=== PATIENT | male | born 1980 | race Caucasian/White ===

== ENCOUNTER 2016-10-06 04:44 | Emergency (ER) | payer BC ==
[~2016-10-06] VITALS: Ht 172.7 cm; Wt 102.3 kg
[~2016-10-06 04:44] MED LIST: ALUM5LIQ PO; NEXI20CA PO
[2016-10-06 04:54] VITALS: BP 147/97; PULSE 67; RESP 18; TEMP 98.6; O2SAT 100
[2016-10-06 05:07] VITALS: BP 133/77; PULSE 71; RESP 18; TEMP 98.6; O2SAT 99
[2016-10-06] MEDS ORDERED: LISI10TA3 PO (05:07)
[2016-10-06 05:25] VITALS: RESP 18; O2SAT 98
[2016-10-06] MEDS ORDERED: methylPREDNISolone SOD SUCC 125 MG/2 ML VIAL IVP ONE (05:30)
[2016-10-06] MEDS ORDERED: diphenhydrAMINE HCL 50 MG/ML VIAL IVP ONE (05:30)
--- NOTE | 2016-10-06 05:33 | PD ---
HPI Chief Complaint: ENT Complaint Time Seen by Provider: 05:18 Travel History International Travel<30 days: No Contact w/Intl Traveler<30days: No Traveled to known affect area: No History of Present Illness HPI 36-year-old male presents to the emergency department by private transportation for evaluation of swelling of his uvula. Patient reports he has reflux esophagitis. Patient states last evening before going to bed around 1:30 AM he noticed some increased reflux and burning in the back of his throat from gastric acid. Patient took Rolaids and drank some hot water with honey. Patient states she went to bed and awakened around 4 AM and noticed some discomfort in his throat and looked in the mirror and saw that his uvula was swollen. Patient states he has taken related to the past without adverse reaction and has consumed the same honey in the past without adverse reaction. Patient took no medications prior to coming to the emergency room. Patient reportedly has allergy to Prilosec and Zantac. Patient does not have any lip swelling tongue swelling and denies any difficulty with swallowing or breathing. Patient had no wheezing chest pain near-syncope or syncope. Patient denies any trauma to the uvula. Patient's had no recent febrile illness or respiratory illness. Patient rates his discomfort 0/10 in intensity. PFSH Past Medical History Narrative Medical Anxiety depression negative stress test atypical chest pain hiatal hernia GERD hypertension tonsillectomy alcohol use nursing notes reviewed Anxiety: Yes Depression: Yes Cardiac Catheterization: No Cardiovascular Problems: Yes (prev stress tests) High Cholesterol: No Congestive Heart Failure: No Diabetes: No Diminished Hearing: No Hiatal Hernia: Yes Heparin Induced Thrombocytopen: Yes Hypertension: Yes Tetanus Vaccination: Unknown Influenza Vaccination: Yes Past Surgical History Coronary Artery Bypass Graft: No Tonsillectomy: Yes Family History Family Myocardial Infarction: Yes (mom) Social History Alcohol Use: Yes (every other weekend) Tobacco Use: No Substance Use: No Allergies-Medications (Allergen,Severity, Reaction): Coded Allergies: Penicillin (Verified Allergy, Severe, 10/06/16) Prilosec (Verified Allergy, Intermediate, 10/06/16) Zantac (Verified Allergy, Intermediate, 10/06/16) Reported Meds & Prescriptions Reported Meds & Active Scripts Active Prednisone 50 Mg Tab 50 Mg PO DAILY Reported Lisinopril 10 Mg Tab 10 Mg PO DAILY Review of Systems Except as stated in HPI: all other systems reviewed are Neg General / Constitutional: No: Fever, Chills HENT: No: Congestion Cardiovascular: No: Chest Pain or Discomfort Respiratory: No: Cough, Shortness of Breath, Wheezing, Stridor Gastrointestinal: No: Nausea, Vomiting Genitourinary: No: Flank Pain Musculoskeletal: No: Pain Skin: No Rash, No Hives Neurologic: No: Weakness Hematologic/Lymphatic: No: Lymph Node Enlargement Physical Exam Narrative GENERAL: Well-developed well-nourished male in no acute distress no respiratory distress no stridor no hoarseness. SKIN: Warm and dry. HEAD: Normocephalic. EYES: No scleral icterus. No injection or drainage. ENT: membranes moist; airway is patent; focal uvula edema NECK: Supple, trachea midline. No JVD or lymphadenopathy. CARDIOVASCULAR: Regular rate and rhythm without murmurs, gallops, or rubs. RESPIRATORY: Breath sounds equal bilaterally. No accessory muscle use. GASTROINTESTINAL: Abdomen soft, non-tender, nondistended. MUSCULOSKELETAL: No cyanosis, or edema. BACK: Nontender without obvious deformity. No CVA tenderness. Data Data Last Documented VS Vital Signs Date Time Temp Pulse Resp B/P Pulse Ox O2 Delivery O2 Flow Rate FiO2 10/06/16 05:25 18 98 Room Air 10/06/16 05:10 71 10/06/16 05:07 98.6 133/77 Orders Ecg Monitoring (10/06/16 05:18) Iv Access Insert/Monitor (10/06/16 05:18) Oximetry (10/06/16 05:18) Diphenhydramine Inj (Benadryl Inj) (10/06/16 05:30) Methylprednisolone So Succ Inj (Solumedr (10/06/16 05:30) MDM Medical Decision Making Medical Screen Exam Complete: Yes Emergency Medical Condition: Yes Medical Record Reviewed: Yes Differential Diagnosis Allergic reaction, angioedema, anaphylaxis, hereditary angioedema, chemical burn /reflux esophagitis Narrative Course Patient administered Solu-Medrol 125 mg IV and Benadryl 25 mg IV At 6:35 AM patient is clinically improved focal angioedema involving the uvula is diminishing. Patient continues to have no respiratory distress or difficulty with swallowing also no stridor or hoarseness. Patient tolerated oral hydration well in the emergency department. Patient appears stable at this time for outpatient management Diagnosis Primary Impression: Angioedema Qualified Code: T78.3XXA - Angioedema, initial encounter Referrals: Primary Care Physician 1 day Patient Instructions: General Instructions Departure Forms: Tests/Procedures, Work Release Special Instructions: No work times one day Additional Instructions: No work times one day Avoid hot foods and beverages 24 hours Follow soft diet 24 hours Complete course of oral steroid as prescribed Use Benadryl 25-50 mg as often as every 4-6 hours as needed for soft tissue swelling/allergic reaction Return to the emergency for for any concerns or change in condition Increase fluid hydration Follow-up with primary care provider Med/Other Pt SpecificInfo: Prescription(s) given Scripts Prednisone 50 Mg Tab50 Mg PO DAILY #4 TAB Ref 0 Prov:Evonne Bui MD 10/06/16 Disposition: 01 DISCHARGE HOME Condition: Stable Evonne Bui MD Oct 06, 2016 05:33
[2016-10-06] MEDS ORDERED: PRED50 PO (06:31)
== END 2016-10-06 07:04 | disposition home or self-care (01) ==
LOC: PHED 04:44
DX: T78.3XXA Angioneurotic edema, initial encounter (principal); K21.0 Gastro-esophageal reflux disease with esophagitis; I10 Essential (primary) hypertension; X58.XXXA Exposure to other specified factors, initial encounter
CPT/HCPCS: 96374; 96375; 99283; J1200; J2930

== ENCOUNTER 2017-01-21 16:17 | Emergency (ER) | payer BC ==
[~2017-01-21] VITALS: Ht 172.7 cm; Wt 95.4 kg
[~2017-01-21 16:17] MED LIST changes: -ALUM5LIQ PO; +LISI10TA3 PO; -NEXI20CA PO; +PRED50 PO
[2017-01-21 16:24] VITALS: BP 145/88; PULSE 101; RESP 15; TEMP 98.7; O2SAT 99
--- NOTE | 2017-01-21 17:14 | PD ---
HPI Chief Complaint: Anxiety Time Seen by Provider: 16:38 Travel History International Travel<30 days: No Contact w/Intl Traveler<30days: No Traveled to known affect area: No History of Present Illness HPI 36, history anxiety presents emergency Department increased anxiety symptoms. He states recently he said more episodes of increased agitation, anxiety, feelings of also control. He's been treated for depression and anxiety in the past. Is in more social stressors recently the been following up. He is not being treated now. He came in today because he was having more these episodes. Feels otherwise well. No HI no SI. No other complaints. History Past Medical History Narrative Medical Anxiety Hypertension PUD Tetanus Vaccination: Unknown Influenza Vaccination: No Social History Alcohol Use: Yes (every other weekend) Tobacco Use: No Allergies-Medications (Allergen,Severity, Reaction): Coded Allergies: Penicillin (Verified Allergy, Severe, 01/21/17) Prilosec (Verified Allergy, Intermediate, 01/21/17) Zantac (Verified Allergy, Intermediate, 01/21/17) Reported Meds & Prescriptions Reported Meds & Active Scripts Active Reported Lisinopril 10 Mg Tab 10 Mg PO DAILY Review of Systems Except as stated in HPI: all other systems reviewed are Neg Physical Exam Narrative GENERAL: Well-appearing 36, no acute distress. SKIN: Focused skin assessment warm/dry. MUSCULOSKELETAL: No obvious deformities. No clubbing. No cyanosis. No edema. NEUROLOGICAL: Awake and alert. No obvious cranial nerve deficits. Motor grossly within normal limits. Normal speech. PSYCHIATRIC: Appropriate mood and affect; insight and judgment normal. Data Data Last Documented VS Vital Signs Date Time Temp Pulse Resp B/P Pulse Ox O2 Delivery O2 Flow Rate FiO2 01/21/17 16:24 98.7 101 15 145/88 99 Orders Hydroxyzine Hcl (Atarax) (01/21/17 17:15) [facility] Medical Decision Making Medical Screen Exam Complete: Yes Emergency Medical Condition: Yes Differential Diagnosis Anxiety, depression, adjustment reaction Narrative Course 36-year-old man presents when he of increased anxiety episodes. He looks well. Outpatient follow-up with psychiatry. He gets all his care at the [facility]. I think he needs any acute treatment. Is driving so we offered him hydroxyzine. Outpatient follow-up. Diagnosis Primary Impression: Anxiety Patient Instructions: General Instructions Additional Instructions: Follow-up with your primary doctor for referral to a therapist and psychiatrist. Return to the emergency department for any new or worsening symptoms. Med/Other Pt SpecificInfo: No Change to Meds Disposition: 01 DISCHARGE HOME Condition: Stable Jasen Robertson MD Jan 21, 2017 17:14
[2017-01-21] MEDS ORDERED: hydrOXYzine HCL 25 MG TAB PO ONE (17:15)
== END 2017-01-21 17:24 | disposition home or self-care (01) ==
LOC: PHED 16:17
DX: F41.9 Anxiety disorder, unspecified (principal)
CPT/HCPCS: 99283